=== PATIENT | female | born 1980 | race Two or more races ===

== ENCOUNTER 2024-11-14 23:31 | Inpatient (IN) | payer MEDICAID, OTHER ==
[~2024-11-14] VITALS: Ht 165.1 cm; Wt 79.4 kg
--- NOTE | 2024-11-14 23:47 | ECG ---
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
--- NOTE | 2024-11-15 00:02 | ED.PDOC ---
HPI Comments MORGAN CHEST PAIN HPI: Poor Historian. 44-year-old female presents to emergency department for evaluation of three day have chest pressure with associated radiation to the left upper extremity left lower extremity of numbness and tingling. Symptoms are worse at nighttime. Denies any history of tobacco or alcohol or drugs. No other alleviating or precipitating factors. Past Medical History: Hypertension, diabetes, dyslipidemia Past Surgical History: Tummy tuck, breast implants, BTL REVIEW OF SYSTEMS: CONSTITUTIONAL: Denies acute: fever, diaphoresis, chills, generalized weakness. HEAD: Denies acute: headache, photophobia Eyes: Denies acute: Double vision, vision loss, eye pain, eye discharge. EARS: Denies acute: tinnitus, hearing loss, ear discharge, ear pain, THROAT: Denies acute: sore throat, swelling, difficulty swallowing , pain with swallowing, change in voice. NECK: Denies acute: neck pain, neck swelling, stiff neck. HEART: Denies acute : palpitations, LUNGS: Denies acute: SOB, wheezing, cough, hemoptysis ABDOMEN: Denies acute: abdominal pain, Nausea, Vomiting, diarrhea, melena , hematemesis, hematochezia SKIN: Denies acute: rash, redness, lesions, itchiness. EXTREMITIES: Denies acute: calf pain, , , weakness, denies pain in extremity. Denies acute: Low back pain. Neuro: Denies acute: focal neurological deficit, motor or sensory focal neurological deficit, tremors, seizure like activity, confusion, dizziness, change in mental status, loss of bowel or bladder function, cauda equina like symptoms. : Denies acute: dysuria, hematuria, flank pain, increase in urinary frequency. PSYCH: Denies acute: hallucination, suicidal ideation, homicidal ideation. FEMALE: Denies acute: abnormal vaginal bleeding, foul odor, unusual discharge. PHYSICAL EXAM: General: ---mild-----acute distress, awake and alert. Appears anxious Head: normocephalic, atraumatic. Neck: supple, trachea is midline, no swelling. Throat: Normal phonation. Eyes:, no erythema, no purulent discharge, no proptosis, no icterus. Heart: regular rate, regular rhythm, no significant murmur appreciated. Lungs: no apparent respiratory distress, Able to speak in full sentences. No wheezing, no rhonchi, no crackles. No stridors Clear to auscultation bilaterally. Abdomen: non tender to palpation, non distended, soft, no guarding, no rebound, + bowel sounds. Neuro: Awake, Alert, oriented to name, self, situation, follows commands GCS=15. Speech is normal. Skin: no petechia, no purpura, no cyanosis, non-pale, not jaundice. Lower extremities: --no - Pitting edema no deformity, no focal swelling, no calf TTP. Makes eye contact. moves all four extremities. Face: no apparent facial droop. Ambulating in the ED independently. ED COURSE: DISCLAIMER: This medical document was created using an electronic medical record system with voice recognition software and computerized dictation system. Although this document has been carefully reviewed, there might still be some phonetic and typographical errors. Occasional wrong-word or "sound-alike" substitutions may have occurred due to the inherent limitations of voice recognition software. These areas are purely typographical due to imperfections of the software programs and do not reflect any compromise in the patient's medical care. Please read the chart carefully and recognize, using context, where these substitutions have occurred. Chief Complaint: Chest Pain Time Seen by MD: 23:38 Reviewed Notes: Nurses Notes Allergies: Coded Allergies: NO KNOWN ALLERGIES (Unverified , 11/15/24) Information Source: Patient Mode of Arrival: Ambulatory EKG EKG : Pulse Rate (adult): 71 Cardiac Rhythm: NSR Was a procedure done? Was a procedure done?: No CP Differential Dx Differential Diagnosis: Angina, Anxiety / Panic Attack Differential Diagnosis: Angina, Chest Wall Pain, Costochondritis, Esophageal reflux/spasm, Gastritis, Myocardial Infarction, Other (Ddx include but not limitied to gastritis, musculoskeletal pain, radiculopathy, atypical chest pain, dissection, aneurysm, ACS, unstable angina, hiatal hernia, GERD, anxiety, costochondritis, PE, pneumothroax, neoplasm, cardiac ischemia, drug abuse, anemia.) X-Ray, Labs, Meds, VS Vital Signs Date Time Temp Pulse Resp B/P (MAP) Pulse Ox O2 Delivery O2 Flow Rate FiO2 11/15/24 02:26 147/85 11/15/24 02:23 98.9 75 18 147/85 (105) 99 98.9 11/15/24 01:30 79 19 98 Room Air* 0 21 11/15/24 00:30 71 11/15/24 00:11 71 11/14/24 23:41 71 11/14/24 23:37 97.9 85 16 146/93 98 97.9 Lab Test 11/15/24 02:43 11/15/24 00:30 11/14/24 23:48 Range/Units White Blood Count 10.0 10.8 4.4-10.8 10^3/uL Red Blood Count 4.51 4.66 4.0-5.20 10^6/uL Hemoglobin 14.3 14.5 12.2-16.2 g/dL Hematocrit 42.1 41.7 36.0-46.0 % Mean Corpuscular Volume 93.4 # 89.5 80.0-100.0 fL Mean Corpuscular Hemoglobin 31.7 31.1 28.0-32.0 pg Mean Corpuscular Hemoglobin Concent 33.9 34.8 32.0-36.0 g/dL Red Cell Distribution Width 13.1 13.2 11.8-14.3 % Platelet Count 265 227 140-450 10^3/uL Mean Platelet Volume 9.0 7.9 6.9-10.8 fL Neutrophils (%) (Auto) 60.3 57.7 37.0-80.0 % Lymphocytes (%) (Auto) 29.9 32.6 10.0-50.0 % Monocytes (%) (Auto) 6.5 6.2 0.0-12.0 % Eosinophils (%) (Auto) 2.8 2.8 0.0-7.0 % Basophils (%) (Auto) 0.5 0.7 0.0-2.0 % Neutrophils # (Auto) 6.0 6.2 1.6-8.6 10 ^3/uL Lymphocytes # (Auto) 3.0 3.5 0.4-5.4 10 ^3/uL Monocytes # (Auto) 0.6 0.7 0-1.3 10 ^3/uL Eosinophils # (Auto) 0.3 0.3 0-0.8 10 ^3/uL Basophils # (Auto) 0 0.1 0-0.2 10 ^3/uL Nucleated Red Blood Cells 0.2 0.0 % Sodium Level 140 143 136-145 mmol/L Potassium Level 3.9 3.6 3.5-5.1 mmol/L Chloride Level 107 106 98-107 mmol/L Carbon Dioxide Level 21 27 20-31 mmol/L Anion Gap 12 10 5-15 Blood Urea Nitrogen 10 12 9-23 mg/dL Creatinine 0.73 0.77 0.550-1.02 mg/dL Glomerular Filtration Rate Calc 103 97 >90 mL/min BUN/Creatinine Ratio 13.7 15.6 10.0-20.0 Serum Glucose 100 111 H 74-106 mg/dL Calcium Level 9.2 9.7 8.7-10.4 mg/dL Total Bilirubin 0.4 0.4 0.2-1.0 mg/dL Aspartate Amino Transferase (AST) 25 26 13-40 U/L Alanine Aminotransferase (ALT) 30 33 7-40 U/L Alkaline Phosphatase 78 90 46-116 U/L Troponin I High Sensitivity < 3 L < 3 L < 3 L </=34 ng/L C-Reactive Protein High Sensitivity 0.27 <1.0 mg/dL B-Type Natriuretic Peptide 3.83 0-100 pg/mL Total Protein 7.2 7.6 5.7-8.2 g/dL Albumin 4.5 4.7 3.2-4.8 g/dL Current Medications Medications (Trade) Dose Ordered Sig/Mark Route Start Time Stop Time Status Last Admin Aspirin (Ecotrin Enteric Coated Tablet) 325 mg ONCE ONCE PO 11/15/24 01:00 11/15/24 02:01 DC 11/15/24 02:29 Nitroglycerin (Ntrostat Sublingual) 0.4 mg ONCE ONCE SL 11/15/24 01:00 11/15/24 02:01 DC 11/15/24 02:[address] [address] Ph: [phone] DIAGNOSTIC IMAGING Diagnostic Imaging Report : [id number] Signed PATIENT: MALLORY MORGAN ACCT: [id number] UNIT: [id number] : 1980 LOC: ER ROOM / BED: / AGE / SEX: 44 / F ADM STATUS: REG ER SERVICE [id number] ORDERING PHYSICIAN: RON BARRERA DO PROCEDURE(s): CXRP - CHEST PORTABLE REASON: cp ORDER NUMBER(s): [id number], ACCESSION NUMBER(s): [id number] CHEST RADIOGRAPH Indication: cp Technique: Single frontal view of the chest was obtained COMPARISON: None FINDINGS: Lines and Tubes: None Lungs: Clear Pleura: No effusion. No pneumothorax. Cardiomediastinal contours: Unremarkable Bones: Unremarkable IMPRESSION: 1. No acute disease. ATED BY: ROGE JAIMES MD DICTATED DATE/TIME: 11/15/2426 SIGNED BY: ROGE JAIMES MD SIGNED DATE/TIME: 11/15/2426 CC: Time of 1ST Reevaluation: 00:10 Reevaluation 1ST: Unchanged Patient Education/Counseling: Diagnosis, Treatment Family Education/Counseling: Diagnosis, Treatment Comments MDM: patient presented with the above HPI.---cardiac---workup was initiated. patient was found with the above mentioned diagnosis. the following medications were ordered: please refer to order lists of meds and tests obtained by myself Dr. Barrera. Patient ED course and VS have been stabilized. Patient has been reassessed in the ED and remained in a stable condition. Pertinent incidental findings were discussed with the patient and/or family. Patient/family voices understanding and is agreeable with plan. Patient has been observed in the ED adequate length of time to insure improvement/stability. Escalation of care considered: Consideration of escalation to observation or admission Patient was ADMITTED to the medicine team for further evaluation and treatment of their presentation. All the reports of any imaging studies that were ordered by myself were reviewed by myself. Departure 1 Departure Time of Disposition: 00:48 Impression: Primary Impression: Chest pain Disposition: ADMITTED INPATIENT Admit to: [facility] Condition: Guarded Discharged With: Self Critical Care Note Critical Care Time?: No Heart Score Heart Score: Heart Score Response (Comments) Value History Moderate Suspicious 1 EKG Normal 0 Age <45 0 Risk Factors >3 or Hx ASHD 2 Troponin Normal limit 0 Total 3 I personally scribed for RON BARRERA DO ([email or web address]) on 11/15/24 at 00:11. Electronically submitted by Yovanny Allen ([facility]). I personally scribed for RON BARRERA DO ([facility]) on 11/15/24 at 00:47. Electronically submitted by Yovanny Allen ([facility]). I personally scribed for RON BARRERA DO ([facility]) on 11/15/24 at 01:50. Electronically submitted by Yovanny Allen ([facility]). RON BARRERA DO Nov 15, 2024 00:02
[2024-11-15 00:19] LABS: Alanine Aminotransferase 33 U/L (7-40); Albumin 4.7 g/dL (3.2-4.8); Alkaline Phosphatase 90 U/L (46-116); Anion Gap 10 (5-15); BUN/Creatinine Ratio 15.6 (10.0-20.0); Blood Urea Nitrogen 12 mg/dL (9-23); Calcium 9.7 mg/dL (8.7-10.4); Carbon Dioxide 27 mmol/L (20-31); Chloride 106 mmol/L (98-107); Potassium 3.6 mmol/L (3.5-5.1); Sodium 143 mmol/L (136-145); Total Protein 7.6 g/dL (5.7-8.2)
[2024-11-15 00:20] LABS: Bilirubin, Total 0.4 mg/dL (0.2-1.0)
--- NOTE | 2024-11-15 00:29 | DVH ---
CHEST RADIOGRAPH Indication: cp Technique: Single frontal view of the chest was obtained COMPARISON: None FINDINGS: Lines and Tubes: None Lungs: Clear Pleura: No effusion. No pneumothorax. Cardiomediastinal contours: Unremarkable Bones: Unremarkable IMPRESSION: 1. No acute disease.
[2024-11-15 00:33] LABS: Glucose 111 mg/dL (74-106)
[2024-11-15 01:03] LABS: Hematocrit 41.7 % (36.0-46.0); Hemoglobin 14.5 g/dL (12.2-16.2); Mean Corpuscular Hemoglobin 31.1 pg (28.0-32.0); Mean Corpuscular Volume 89.5 fL (80.0-100.0); Nucleated Red Blood Cells % 0.0 %
[2024-11-15 01:30] VITALS: PULSE 79; RESP 19; O2SAT 98
--- NOTE | 2024-11-15 01:44 | ECG ---
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
[2024-11-15] MEDS: NITROGLYCERIN 0.4 MG SL TAB SL ONE (02:26)
[2024-11-15] MEDS: ASPirin-EC 325mg tab PO ONE (02:29)
[2024-11-15] MEDS ORDERED: NITROGLYCERIN 0.4 MG SL TAB SL PRN (04:15)
[2024-11-15] MEDS ORDERED: MORPHINE SULFATE INJ 2 MG/ml SYRG IV PRN (04:15)
[2024-11-15] MEDS ORDERED: DOCUSATE SOD 100 MG CAP PO PRN (04:15)
[2024-11-15] MEDS ORDERED: HYDROcodone-ACET 5/325MG TAB PO PRN (04:15)
[2024-11-15] MEDS ORDERED: ONDANSETRON HCL 4 MG/2 ML VIAL IV PRN (04:15)
[2024-11-15] MEDS ORDERED: PANTOPRAZOLE 40 MG/10 ML VIAL INJ IV ONE (04:15)
--- NOTE | 2024-11-15 04:31 | DVHHPRES ---
History of Present Illness Resident Creating Document: BAILEE DICKSON RESIDENT History of Present Illness Chris Slade is a 44-year-old female with past medical history of hypertension, diabetes, dyslipidemia, GERD, who presented to the ED with chief complaints of pressure-like, 8/10 chest pain which is radiating to the left arm, worse with lying down, which comes and goes Since Monday night. Patient also complains of numbness in her arm since 3 days. She is able to move her arm without any pain. Patient also had a recent UTI and finished her oral antibiotics. Patient takes Ozempic. Patient is admitted for further management. Past Medical History: Hypertension, diabetes, dyslipidemia, GERD Past Surgical History: Tummy tuck, breast implants, BTL Family history: Reviewed, noncontributory Personal history: Denies smoking, drinks occasionally, denies drug use Lives with: Family PCP:Dr. Mcdowell Review of Systems Constitutional: No: Fever, Chills, Sweats, Weakness, Malaise, Other Eyes: No: Pain, Vision change, Conjunctivae inflammation, Eyelid inflammation, Other, Redness ENT: No: Ear pain, Ear discharge, Nose pain, Nose discharge, Nose congestion, Mouth pain, Mouth swelling, Throat pain, Throat swelling, Other Respiratory: No: Cough, Dry, Shortness of breath, SOB with excertion, Wheezing, Hemoptysis, Pleuritic Pain, Sputum, Wheezing, Other Cardiovascular: Chest Pain, Palpitations; No: Orthopnea, Paroxysmal Noc. Dyspnea, Edema, Lt Headedness, Other Gastrointestinal: No: Nausea, Vomiting, Abdominal Pain, Diarrhea, Constipation, Melena, Hematochezia, Other Genitourinary: No Dysuria, No Frequency, No Incontinence, No Hematuria, No Retention, No Other Musculoskeletal: No: other, neck pain, shoulder pain, arm pain, back pain, hand pain, leg pain, foot pain Skin: No: Rash, Lesions, Jaundice, Bruising, Other Neurological: No: Weakness, Numbness, Incoordination, Change in speech, Confusion, Seizures, Other Allergies: Coded Allergies: NO KNOWN ALLERGIES (Unverified , 11/15/24) Exam Vital Signs Vital Signs Date Time Temp Pulse Resp B/P (MAP) Pulse Ox O2 Delivery O2 Flow Rate FiO2 11/15/24 02:26 147/85 11/15/24 02:23 98.9 75 18 99 98.9 11/15/24 01:30 Room Air* 0 21 Exam General: Patient alert and oriented in person, place and time. Patient following commands. In mild distress HEENT: Normocephalic, atraumatic, moist mucous membranes Respiratory/pulmonary: Clear lungs bilaterally, vesicular murmurs present in almost all lung [place], no associated crackles or wheezes. Cardiovascular: Normal heart sounds S1 and S2 with no associated murmurs Abdomen: Abdomen nondistended, there is no pain to palpation in any of the abdominal quadrants, no palpable masses. Extremities: There is no peripheral edema present at the lower extremities. Peripheral Pulses: 3+ Radial (R). 3+ Radial (L). 3+ Dorsalis pedis (R). 3+ Dorsalis pedis(L) Skin: No rashes or pruritus, there is no sacral edema present at this time. Neurological: Intact cranial nerves with no focal neurologic deficits Psych/ Mood: Normal Labs/Xrays Labs Test 11/15/24 02:43 11/14/24 23:48 Range/Units Troponin I High Sensitivity < 3 L </=34 ng/L White Blood Count 10.8 4.4-10.8 10^3/uL Red Blood Count 4.66 4.0-5.20 10^6/uL Hemoglobin 14.5 12.2-16.2 g/dL Hematocrit 41.7 36.0-46.0 % Mean Corpuscular Volume 89.5 80.0-100.0 fL Mean Corpuscular Hemoglobin 31.1 28.0-32.0 pg Mean Corpuscular Hemoglobin Concent 34.8 32.0-36.0 g/dL Red Cell Distribution Width 13.2 11.8-14.3 % Platelet Count 227 140-450 10^3/uL Mean Platelet Volume 7.9 6.9-10.8 fL Neutrophils (%) (Auto) 57.7 37.0-80.0 % Lymphocytes (%) (Auto) 32.6 10.0-50.0 % Monocytes (%) (Auto) 6.2 0.0-12.0 % Eosinophils (%) (Auto) 2.8 0.0-7.0 % Basophils (%) (Auto) 0.7 0.0-2.0 % Neutrophils # (Auto) 6.2 1.6-8.6 10 ^3/uL Lymphocytes # (Auto) 3.5 0.4-5.4 10 ^3/uL Monocytes # (Auto) 0.7 0-1.3 10 ^3/uL Eosinophils # (Auto) 0.3 0-0.8 10 ^3/uL Basophils # (Auto) 0.1 0-0.2 10 ^3/uL Nucleated Red Blood Cells 0.0 % Sodium Level 143 136-145 mmol/L Potassium Level 3.6 3.5-5.1 mmol/L Chloride Level 106 98-107 mmol/L Carbon Dioxide Level 27 20-31 mmol/L Anion Gap 10 5-15 Blood Urea Nitrogen 12 9-23 mg/dL Creatinine 0.77 0.550-1.02 mg/dL Glomerular Filtration Rate Calc 97 >90 mL/min BUN/Creatinine Ratio 15.6 10.0-20.0 Serum Glucose 111 H 74-106 mg/dL Calcium Level 9.7 8.7-10.4 mg/dL Total Bilirubin 0.4 0.2-1.0 mg/dL Aspartate Amino Transferase (AST) 26 13-40 U/L Alanine Aminotransferase (ALT) 33 7-40 U/L Alkaline Phosphatase 90 46-116 U/L Total Protein 7.6 5.7-8.2 g/dL Albumin 4.7 3.2-4.8 g/dL SEPSIS Sepsis Screen Date sepsis recognized/suspect: Nov 14, 2024 Time Sepsis recognized/suspect: 2352 Recent Procedure: No On Antibiotic Therapy: No Respiratory Rate >20: No Heart Rate >90: No Temp<36 C (96.8 F) or >38.3 C: No SBP <90 or MAP <65 mmHG: No New Acute Mental Status Change: No Is the patient on CPAP, BIPAP,: No Physician Orders Environmental Program Manager (11/14/24 ) Drug Screen (11/14/24 23:44) Chest Portable (11/14/24 23:44) Electrocardigram (11/15/24 02:44) Admit (11/15/24 04:07) Allergies (11/15/24 04:07) Code Status (11/15/24 04:07) 2 Gm Sodium Diet (11/15/24 Breakfast) Hydrocodone-Acet 5/325mg Tab ([place] 32 (11/15/24 04:15) Ondansetron Hcl (Zofran) (11/15/24 04:15) Docusate Sodium Capsule (Colace Capsule) (11/15/24 04:15) Complete Blood Count (11/15/24 04:07) Comprehensive Metabolic Panel (11/15/24 04:07) Condition: Serious (11/15/24 04:07) Bedrest With Bathroom Privileg (11/15/24 04:07) Oxygen By Nasal Cannula (11/15/24 04:07) Stat Ekg For Chest Pain (11/15/24 04:07) Notify Of Changes From Base (11/15/24 04:07) Programmer Analyst For 24 Hours (11/15/24 04:07) Emergency Dysrhythmia Protocol (11/15/24 04:07) Rhythm Strips Once Every Shift (11/15/24 04:07) Morphine Sulfate Injection (11/15/24 04:15) Nitroglycerin Sublingual (Ntrostat Subli (11/15/24 04:15) Pantoprazole (Protonix) (11/15/24 04:15) Pantoprazole (Protonix) (11/15/24 10:00) Electrocardigram (11/15/24 04:07) Troponin-I Hs (11/15/24 04:07) B-Type Natriuretic Peptide (11/15/24 04:07) Urinalysis (11/15/24 04:07) C-Reactive Protein (11/15/24 04:07) Vital Signs Date Time Temp Pulse Resp B/P (MAP) Pulse Ox O2 Delivery O2 Flow Rate FiO2 11/15/24 02:26 147/85 11/15/24 02:23 98.9 75 18 147/85 (105) 99 98.9 11/15/24 01:30 79 19 98 Room Air* 0 21 11/15/24 00:30 71 11/15/24 00:11 71 11/14/24 23:41 71 11/14/24 23:37 97.9 85 16 146/93 98 97.9 Laboratory Tests Test 11/14/24 23:48 White Blood Count 10.8 10^3/uL (4.4-10.8) Medications Medications Dose Ordered Sig/Mark Route Start Time Stop Time Status Last Admin Dose Admin Aspirin 325 mg ONCE ONCE PO 11/15/24 01:00 11/15/24 02:01 DC 11/15/24 02:29 325 MG Nitroglycerin 0.4 mg ONCE ONCE SL 11/15/24 01:00 11/15/24 02:01 DC 11/15/24 02:26 0.4 MG Assessment/Plan Assessment/Plan Assessment and plan # chest pain rule out ACS, pruritic pattern of chest pain, associated dyspepsia ? Endocarditis ? Gastritis - EKG WNL, ordered CRP, normal tropes - troponins negative - aspirin 325 mg was given in the ER - Continue Protonix # hypertension - continue home meds # diabetes mellitus -we will order insulin sliding scale # hyperlipidemia - continue home meds PPI prophylaxis: Protonix DVT prophylaxis: Not indicated Goals of care addressed with the patient for more than 27 minutes: Full code status Case discussed with Dr. Roche, patient and nurse Plan discussed with: Patient My Orders Orders - BAILEE DICKSON RESIDENT Procedure Category Date Status Time Admit ADMIT 11/15/24 Transmitted 04:07 Allergies [facility] 11/15/24 In Process 04:07 Code Status CODE 11/15/24 Transmitted 04:07 2 Gm Sodium Diet DIET 11/15/24 Transmitted Breakfast Hydrocodone-Acet [facility] 11/15/24 Transmitted 5/325mg Tab ([place] 04:15 Ondansetron Hcl [facility] 11/15/24 Transmitted (Zofran) 04:15 Docusate Sodium [facility] 11/15/24 Transmitted Capsule (Colace 04:15 Complete Blood Count LAB 11/15/24 Transmitted 04:07 Comprehensive LAB 11/15/24 Transmitted Metabolic Panel 04:07 Condition: Serious [facility] 11/15/24 In Process 04:07 Bedrest With Bathroom [facility] 11/15/24 In Process Privileg 04:07 Oxygen By Nasal RT 11/15/24 Transmitted Cannula 04:07 Stat Ekg For Chest [facility] 11/15/24 Transmitted Pain 04:07 Notify Of Changes [facility] 11/15/24 Transmitted From Base 04:07 Programmer Analyst For [facility] 11/15/24 Transmitted 24 Hours 04:07 Emergency Dysrhythmia [facility] 11/15/24 Transmitted Protocol 04:07 Rhythm Strips Once [facility] 11/15/24 Transmitted Every Shift 04:07 Morphine Sulfate [facility] 11/15/24 Transmitted Injection 04:15 Nitroglycerin [facility] 9/12/25 Transmitted Sublingual (Ntrostat 04:15 Pantoprazole [facility] 11/15/24 Transmitted (Protonix) 04:15 Pantoprazole [facility] 11/15/24 Transmitted (Protonix) 10:00 Electrocardigram EKG 11/15/24 Transmitted 04:07 Troponin-I Hs LAB 11/15/24 Logged 04:07 B-Type Natriuretic LAB 11/15/24 Logged Peptide 04:07 Urinalysis LAB 11/15/24 Transmitted 04:07 C-Reactive Protein LAB 11/15/24 Logged 04:07 Date of Service: Nov 15, 2024 Billing Provider: KIP ROCHE MD Common Visit Codes: [id number] INP/OBS CARE (HIGH) Secondary Visit Codes: [id number] CARE PLAN 30 MINUTES BAILEE DICKSON RESIDENT Nov 15, 2024 04:31 JUDE DEXTER RESIDENT Nov 15, 2024 09:21
[2024-11-15 04:59] LABS: Hematocrit 42.1 % (36.0-46.0); Hemoglobin 14.3 g/dL (12.2-16.2); Mean Corpuscular Hemoglobin 31.7 pg (28.0-32.0); Mean Corpuscular Volume 93.4 fL (80.0-100.0); Nucleated Red Blood Cells % 0.2 %
[2024-11-15 05:04] LABS: Alanine Aminotransferase 30 U/L (7-40); Albumin 4.5 g/dL (3.2-4.8); Alkaline Phosphatase 78 U/L (46-116); Anion Gap 12 (5-15); BUN/Creatinine Ratio 13.7 (10.0-20.0); Bilirubin, Total 0.4 mg/dL (0.2-1.0); Blood Urea Nitrogen 10 mg/dL (9-23); Calcium 9.2 mg/dL (8.7-10.4); Carbon Dioxide 21 mmol/L (20-31); Chloride 107 mmol/L (98-107); Glucose 100 mg/dL (74-106); Potassium 3.9 mmol/L (3.5-5.1); Sodium 140 mmol/L (136-145); Total Protein 7.2 g/dL (5.7-8.2)
[2024-11-15 05:22] VITALS: BP 145/81; PULSE 68; RESP 18; TEMP 98.7; O2SAT 97
--- NOTE | 2024-11-15 09:38 | DVHDSRES ---
Discharge Summary Date of Admission Resident Creating Document: BAILEE DICKSON Nov 15, 2024 at 04:07 Date of Discharge: Nov 15, 2024 Admitting Diagnosis pericarditis Labs/Diagnostic Data: Laboratory Results Test 11/15/24 02:43 White Blood Count 10.0 10^3/uL (4.4-10.8) Red Blood Count 4.51 10^6/uL (4.0-5.20) Hemoglobin 14.3 g/dL (12.2-16.2) Hematocrit 42.1 % (36.0-46.0) Mean Corpuscular Volume 93.4 fL (80.0-100.0) Mean Corpuscular Hemoglobin 31.7 pg (28.0-32.0) Mean Corpuscular Hemoglobin Concent 33.9 g/dL (32.0-36.0) Red Cell Distribution Width 13.1 % (11.8-14.3) Platelet Count 265 10^3/uL (140-450) Mean Platelet Volume 9.0 fL (6.9-10.8) Neutrophils (%) (Auto) 60.3 % (37.0-80.0) Lymphocytes (%) (Auto) 29.9 % (10.0-50.0) Monocytes (%) (Auto) 6.5 % (0.0-12.0) Eosinophils (%) (Auto) 2.8 % (0.0-7.0) Basophils (%) (Auto) 0.5 % (0.0-2.0) Neutrophils # (Auto) 6.0 10 ^3/uL (1.6-8.6) Lymphocytes # (Auto) 3.0 10 ^3/uL (0.4-5.4) Monocytes # (Auto) 0.6 10 ^3/uL (0-1.3) Eosinophils # (Auto) 0.3 10 ^3/uL (0-0.8) Basophils # (Auto) 0 10 ^3/uL (0-0.2) Nucleated Red Blood Cells 0.2 % Sodium Level 140 mmol/L (136-145) Potassium Level 3.9 mmol/L (3.5-5.1) Chloride Level 107 mmol/L (98-107) Carbon Dioxide Level 21 mmol/L (20-31) Anion Gap 12 (5-15) Blood Urea Nitrogen 10 mg/dL (9-23) Creatinine 0.73 mg/dL (0.550-1.02) Glomerular Filtration Rate Calc 103 mL/min (>90) BUN/Creatinine Ratio 13.7 (10.0-20.0) Serum Glucose 100 mg/dL (74-106) Calcium Level 9.2 mg/dL (8.7-10.4) Total Bilirubin 0.4 mg/dL (0.2-1.0) Aspartate Amino Transferase (AST) 25 U/L (13-40) Alanine Aminotransferase (ALT) 30 U/L (7-40) Alkaline Phosphatase 78 U/L (46-116) Troponin I High Sensitivity < 3 ng/L (</=34) C-Reactive Protein High Sensitivity 0.27 mg/dL (<1.0) B-Type Natriuretic Peptide 3.83 pg/mL (0-100) Total Protein 7.2 g/dL (5.7-8.2) Albumin 4.5 g/dL (3.2-4.8) Other Laboratory Tests 11/15/24 02:43 Brief Hx & Hospital Course: Chris Slade is a 44-year-old female with past medical history of hypertension, diabetes, dyslipidemia, GERD, who presented to the ED with chief complaints of pressure-like, 8/10 chest pain which is radiating to the left arm, worse with lying down, which comes and goes Since Monday night. Patient also complains of numbness in her arm since 3 days. She is able to move her arm without any pain. Patient also had a recent UTI and finished her oral antibiotics. Patient takes Ozempic. Patient is admitted for further management. Brief hospital course: Patient came to the ED with chief complaints of chest pain for which EKG was done, CBC, CMP was done, troponins were negative. In the ED aspirin 325 mg was given, Protonix was given. For her hypertension her home meds were continued. Patient's chest pain was likely due to pleuritic chest pain, could not rule out diagnosis as the patient has left AMA. Patient was told the risks of leaving AMA, she communicated understanding the risks and benefits of leaving AMA and has signed the AMA form. Patient was advised to return to the ED for any worsening of symptoms. Condition at Discharge: Undetermined Final Diagnosis/Problems List Likely Pleuritic chest pain Unable to rule out gastritis Unable to rule out dyspepsia Hypertension Diabetes mellitus Hyperlipidemia Discharge Disposition: AMA Discharge Statement: "Patient was advised to return to the ER or call 911 if any headaches, dizziness, shortness of breath, chest pain, abdominal pain, bleeding, fevers, or worsening of medical condition. Patient was counseled about treatment plan, medications, possible side effects, patientverbalized understanding. All questions were answered to the best of my ability. This discharge took greater then 30 minutes in planning, reviewing documentation, counseling the patient, and discussing with other team members." ASSESSMENT ASSESSMENT Assessment BAILEE DICKSON RESIDENT Nov 15, 2024 09:38
[2024-11-16] MEDS ORDERED: PANTOPRAZOLE 40 MG/10 ML VIAL INJ IV SCH (10:00)
== END 2024-11-15 06:43 | disposition left against medical advice (07) | DRG 241 ==
LOC: EDBD → ER 23:31 → OVERFLOW 11-15 04:07
PROVIDERS: ADMIT Family Medicine; ATTEND Family Medicine
DX: K29.70 Gastritis, unspecified, without bleeding (principal); E11.9 Type 2 diabetes mellitus without complications; R07.81 Pleurodynia; I10 Essential (primary) hypertension; E78.5 Hyperlipidemia, unspecified; K21.9 Gastro-esophageal reflux disease without esophagitis; Z53.29 Procedure and treatment not carried out because of patient's decision for other reasons; Z98.82 Breast implant status
CPT/HCPCS: 36415; 71045; 80053; 83880; 84484; 85025; 86141; 93005; G0378

== ENCOUNTER 2024-11-17 15:30 | Inpatient (IN) | payer MEDICAID ==
[~2024-11-17] VITALS: Ht 152.4 cm; Wt 78.2 kg
--- NOTE | 2024-11-17 15:37 | ECG ---
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
[2024-11-17 16:23] LABS: Chloride 106 mmol/L (98-107); Potassium 3.8 mmol/L (3.5-5.1); Sodium 141 mmol/L (136-145)
[2024-11-17 16:24] LABS: Anion Gap 11 (5-15); Calcium 9.9 mg/dL (8.7-10.4); Carbon Dioxide 24 mmol/L (20-31)
--- NOTE | 2024-11-17 16:26 | ECG ---
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
[2024-11-17 16:29] LABS: BUN/Creatinine Ratio 19.8 (10.0-20.0); Blood Urea Nitrogen 17 mg/dL (9-23)
[2024-11-17 16:30] LABS: Glucose 110 mg/dL (74-106)
--- NOTE | 2024-11-17 16:42 | DVH ---
EXAM: XY CHEST PORTABLE HISTORY: cp TECHNIQUE: 1 view of the chest COMPARISON: XY CHEST PORTABLE on DOS: 11/15/24 FINDINGS/IMPRESSION: LUNGS: No pleural effusion, consolidation, or pneumothorax MEDIASTINUM: Unremarkable BONES: No acute osseous abnormality OTHER: None
--- NOTE | 2024-11-17 18:18 | ECG ---
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
--- NOTE | 2024-11-17 18:40 | ED.PDOC ---
HPI Comments 44 y.o female with PMHx of DM, HTN, and HLD, presents to the ED for a chief complaint of substernal chest pain associated with left arm numbness and a tingling sensation to her left leg that started 6 days ago. Patient describes chest pain as a burning and pressure sensation that is non radiating, constant, worsens when laying flat and has no alleviating factors. Patient was seen at the ED 3 days ago, had a cardiac work up done and admitted to see can piler, however AMA given wait time and increased malaise while awaiting in the lobby. Patient went home assuming her symptoms would subside but only worsened over the past 2 nights and has dizziness with right sided neck discomfort x 1 day. She denies any nausea, vomiting, abdominal pain, SOB, fever, chills, or leg swelling. She is agreeable to stay this time if admitted as she wants to be seen by a can piler. Chief Complaint: Chest Pain Time Seen by MD: 18:30 Reviewed Notes: Nurses Notes, Medications, Allergies Allergies: Coded Allergies: NO KNOWN ALLERGIES (Unverified , 11/15/24) Information Source: Patient Mode of Arrival: Ambulatory Severity: Moderate Timing: Days (6) Duration: Since onset Location: Substernal Radiation: No Radiation Quality: Pressure, Burning Onset: At Rest Cardiac Risk Factors: Hyperlipidemia, HTN, Diabetes PE Risk Factors: None History of: None Modifying Factors: Nothing Associated Signs and Symptoms: Other Past Medical History PAST MEDICAL HISTORY: DM, High Lipids, HTN Surgical History: Denies all surgeries PROCUREMENT REPRESENTATIVE History: No Pertinent PROCUREMENT REPRESENTATIVE History Family History Family History: Reviewed,noncontributory to illness Social History Smoker: Non-Smoker Alcohol: Denies ETOH Use Drugs: Denies Drug Use Lives In: Home Constitutional: denies: chills, diaphoresis, fatigue, fever, malaise, sweats, weakness, others EENTM: denies: blurred vision, double vision, ear bleeding, ear discharge, ear drainage, ear pain, ear ringing, eye pain, eye redness, hearing loss, mouth pain, mouth swelling, nasal discharge, nose bleeding, nose congestion, nose pain, photophobia, tearing, throat pain, throat swelling, voice changes, others Respiratory: denies: cough, hemoptysis, orthopnea, SOB at rest, shortness of breath, SOB with excertion, stridor, wheezing, others Cardiovascular: reports: chest pain; denies: dizzy spells, diaphoresis, Dyspnea on exertion, edema, irregular heart beat, left arm pain, lightheadedness, palpitations, PND, syncope, others Gastrointestinal: denies: abdomen distended, abdominal pain, blood streaked bowels, constipated, diarrhea, dysphagia, difficulty swallowing, hematemesis, melena, nausea, poor appetite, poor fluid intake, rectal bleeding, rectal pain, vomiting, others Genitourinary: denies: abnormal vagina bleeding, burning, dyspareunia, dysuria, flank pain, frequency, hematuria, incontinence, pain, , vagina discharge, urgency, others Neurological: reports: numbness (left arm ), tingling (left leg ); denies: dizziness, fainting, headache, left sided numbness, left sided weakness, paresthesia, pre-existing deficit, right sided numbness, right sided weakness, seizure, speech problems, tremors, weakness, others Musculoskeletal: denies: back pain, gout, joint pain, joint swelling, muscle pain, muscle stiffness, neck pain, others Integumetry: denies: bruises, change in color, change in hair/nails, dryness, laceration, lesions, lumps, rash, wounds, others Allergic/Immunocompromised: denies: Difficulty Healing, Frequent Infections, Hives, Itching, others Hematologic/Lymphatic: denies: anemia, blood clots, easy bleeding, easy bruising, swollen glands, others Endocrine: denies: excessive hunger, excessive sweating, excessive thirst, excessive urination, flushing, intolerance to cold, intolerance to heat, unexplained weight gain, unexplained weight loss, others Psychiatric: denies: anxiety, bipolar disorder, depression, hopeless, panic disorder, schizophrenia, sleepless, suicidal, others All Other Systems: Reviewed and Negative Physical Exam General Appearance: No Apparent Distress, Obese HEENT: Other (Pupils and face symmetric. Moist mucous membranes.) Neck: Full Range of Motion, Normal Inspection Respiratory: Lungs Clear, No Accessory Muscle Use, No Respiratory Distress, Normal Breath Sounds Cardiovascular: No Edema, No JVD, Regular Rate/Rhythm Breast Exam: Deferred Gastrointestinal: Non Tender, Soft Genitalia: Deferred Pelvic: Deferred Rectal: Deferred Extremities: Normal inspection, Normal range of motion, Non-tender, No pedal edema Neurologic: Alert (Oriented x4), Normal Affect, Normal Mood, Other (Ambulatory) Cerebellar Function: NOT DONE Reflexes: NOT DONE Skin: Dry, Normal Color, Warm Lymphatic: NOT DONE EKG EKG : Comments Sinus rhythm, rate 65, normal intervals, borderline left axis, normal QRS, nonspecific T change. Was a procedure done? Was a procedure done?: No CP Differential Dx Differential Diagnosis: N/A Differential Diagnosis: Angina, Chest Wall Pain, Costochondritis, Esophageal reflux/spasm, Gastritis, Myocardial Infarction, Pericarditis, Pneumonia, Pulmonary Embolus X-Ray, Labs, Meds, VS Vital Signs Date Time Temp Pulse Resp B/P (MAP) Pulse Ox O2 Delivery O2 Flow Rate FiO2 11/17/24 18:57 98.7 77 16 140/86 (104) 99 98.7 11/17/24 18:57 77 11/17/24 18:56 140/86 11/17/24 18:18 65 11/17/24 16:25 72 11/17/24 15:36 96 11/17/24 15:33 98.7 109 16 168/98 98 98.7 Lab Test 11/17/24 19:08 11/17/24 16:55 11/17/24 15:57 Range/Units White Blood Count 9.0 4.4-10.8 10^3/uL Red Blood Count 5.01 4.0-5.20 10^6/uL Hemoglobin 15.6 12.2-16.2 g/dL Hematocrit 45.1 36.0-46.0 % Mean Corpuscular Volume 90.1 80.0-100.0 fL Mean Corpuscular Hemoglobin 31.1 28.0-32.0 pg Mean Corpuscular Hemoglobin Concent 34.5 32.0-36.0 g/dL Red Cell Distribution Width 13.2 11.8-14.3 % Platelet Count 269 140-450 10^3/uL Mean Platelet Volume 9.3 6.9-10.8 fL Neutrophils (%) (Auto) 63.4 37.0-80.0 % Lymphocytes (%) (Auto) 28.5 10.0-50.0 % Monocytes (%) (Auto) 5.6 0.0-12.0 % Eosinophils (%) (Auto) 1.9 0.0-7.0 % Basophils (%) (Auto) 0.6 0.0-2.0 % Neutrophils # (Auto) 5.7 1.6-8.6 10 ^3/uL Lymphocytes # (Auto) 2.6 0.4-5.4 10 ^3/uL Monocytes # (Auto) 0.5 0-1.3 10 ^3/uL Eosinophils # (Auto) 0.2 0-0.8 10 ^3/uL Basophils # (Auto) 0.1 0-0.2 10 ^3/uL Nucleated Red Blood Cells 0.1 % Total Bilirubin Pending Direct Bilirubin Pending Aspartate Amino Transferase (AST) Pending Alanine Aminotransferase (ALT) Pending Alkaline Phosphatase Pending Troponin I High Sensitivity < 3 L < 3 L </=34 ng/L Total Protein Pending Albumin Pending Triglycerides Level Pending Cholesterol Level Pending LDL Cholesterol Pending HDL Cholesterol Pending Anti-Nuclear Antibody Screen Pending D-Dimer, Quantitative 0.43 0.0-0.49 mg/L FEU Sodium Level 141 136-145 mmol/L Potassium Level 3.8 3.5-5.1 mmol/L Chloride Level 106 98-107 mmol/L Carbon Dioxide Level 24 20-31 mmol/L Anion Gap 11 5-15 Blood Urea Nitrogen 17 9-23 mg/dL Creatinine 0.86 0.550-1.02 mg/dL Glomerular Filtration Rate Calc 85 >90 mL/min BUN/Creatinine Ratio 19.8 10.0-20.0 Serum Glucose 110 H 74-106 mg/dL Hemoglobin A1c Pending Calcium Level 9.9 8.7-10.4 mg/dL B-Type Natriuretic Peptide 2.05 0-100 pg/mL Thyroid Stimulating Hormone (TSH) Pending Current Medications Medications (Trade) Dose Ordered Sig/Mark Route Start Time Stop Time Status Last Admin Aspirin 325 mg ONCE ONCE PO 11/17/24 18:45 11/17/24 18:46 DC 11/17/24 18:55 Nitroglycerin (Nitro-Bid) 1 pkg ONCE ONCE TD 11/17/24 18:45 11/17/24 18:46 DC 11/17/24 18:56 X-Ray, Labs, Meds, VS Comment 44-year-old female with a history of hypertension, diabetes and dyslipidemia complaining of chest pain Vitals remarkable for heart rate 109, BP 168/98 Exam remarkable for initial tachycardia Rhythm strip independently interpreted by me: Sinus tach, rate 109, no ectopy. Chest x-ray unremarkable CBC, basic metabolic panel, BNP, D-dimer and troponin unremarkable Patient treated with the following in the ED: Aspirin 325 mg p.o., nitro bid 1/2 inch to chest wall Patient was here 3 days ago for the same complaint, plan was for admission but patient left AMA. Patient now states she has not had improvement of her symptoms. Plan is to admit the patient for Cardiology evaluation. Time of 1ST Reevaluation: 18:36 Reevaluation 1ST: Unchanged Patient Education/Counseling: Diagnosis, Treatment, Prognosis Family Education/Counseling: No Family Present SEPSIS Sepsis Screen Date sepsis recognized/suspect: Nov 17, 2024 Time Sepsis recognized/suspect: 1532 Recent Procedure: No On Antibiotic Therapy: No Respiratory Rate >20: No Heart Rate >90: No Temp<36 C (96.8 F) or >38.3 C: No SBP <90 or MAP <65 mmHG: No New Acute Mental Status Change: No Is the patient on CPAP, BIPAP,: No Physician Orders Chest Portable (11/17/24 15:41) Urinalysis (11/17/24 15:41) Vital Signs Date Time Temp Pulse Resp B/P (MAP) Pulse Ox O2 Delivery O2 Flow Rate FiO2 11/17/24 18:57 98.7 77 16 140/86 (104) 99 98.7 11/17/24 18:57 77 11/17/24 18:56 140/86 11/17/24 18:18 65 11/17/24 16:25 72 11/17/24 15:36 96 11/17/24 15:33 98.7 109 16 168/98 98 98.7 Laboratory Tests Test 11/17/24 19:08 White Blood Count 9.0 10^3/uL (4.4-10.8) Medications Medications Dose Ordered Sig/Mark Route Start Time Stop Time Status Last Admin Dose Admin Aspirin 325 mg ONCE ONCE PO 11/17/24 18:45 11/17/24 18:46 DC 11/17/24 18:55 Nitroglycerin 1 pkg ONCE ONCE TD 11/17/24 18:45 11/17/24 18:46 DC 11/17/24 18:56 Departure 1 Departure Time of Disposition: 18:42 Impression: Primary Impression: Chest pain with high risk for cardiac etiology Disposition: 09 ADMITTED INPATIENT Admit to: Tele Condition: Guarded Critical Care Note Critical Care Time?: No Stability Stability form required: No Heart Score Heart Score: Heart Score Response (Comments) Value History Moderate Suspicious 1 EKG Repolarization Disturb 1 Age 45-64 1 Risk Factors >3 or Hx ASHD 2 Troponin Normal limit 0 Total 5 I personally scribed for JESUS CUEVA MD ([email or web address]) on 11/17/24 at 18:40. Electronically submitted by Ana Yan ([facility]). JESUS CUEVA MD Nov 17, 2024 18:40
[2024-11-17] MEDS ORDERED: NITROGLYCERIN 2% OINT 1GM PKG TD ONE (18:56)
[2024-11-17] MEDS: NITROGLYCERIN 2% OINT 1GM PKG TD ONE (18:56)
[2024-11-17 19:22] LABS: Hematocrit 45.1 % (36.0-46.0); Hemoglobin 15.6 g/dL (12.2-16.2); Mean Corpuscular Hemoglobin 31.1 pg (28.0-32.0); Mean Corpuscular Volume 90.1 fL (80.0-100.0); Nucleated Red Blood Cells % 0.1 %
[2024-11-17] MEDS ORDERED: ONDANSETRON HCL 4 MG/2 ML VIAL IV PRN (20:45)
[2024-11-17] MEDS ORDERED: NITROGLYCERIN 0.4 MG SL TAB SL PRN (20:45)
[2024-11-17] MEDS ORDERED: MORPHINE SULFATE INJ 2 MG/ml SYRG IV PRN ×2 (20:45)
[2024-11-17 22:22] LABS: Alanine Aminotransferase 37.0 U/L (7-40); Alkaline Phosphatase 82.0 U/L (46-116); Bilirubin, Direct 0.1 mg/dL (<0.3); Bilirubin, Total 0.6 mg/dL (0.2-1.0); Cholesterol 175.0 mg/dL (< 200); HDL Cholesterol 45.0 mg/dL (40-59); Total Protein 7.9 g/dL (5.7-8.2)
[2024-11-17 22:31] LABS: Albumin 4.8 g/dL (3.2-4.8); Triglycerides 191.0 mg/dL (< 150)
--- NOTE | 2024-11-17 23:56 | DVHHPRES ---
History of Present Illness Resident Creating Document: BAILEE DICKSON RESIDENT History of Present Illness Chris Slade 44-year-old female with past medical history of hypertension, diabetes, dyslipidemia, GERD, who presented to the ED with chief complaints of pressure-like, burning-type, 8/10 substernal pain which is radiating to the left arm, worse with lying down, which comes and goes Since one week. Patient came to the ED 3 days ago with similar complaints, and left AMA. Patient went home assuming her symptoms would improve but they have worsened over the past 2 nights. Patient also complained of occipital headache which comes and goes for over a month. Patient wants to get admitted, wants to be seen by manager of distribution. Patient Is admitted for further management. Past medical history: hypertension, diabetes, dyslipidemia, GERD Surgical history: Tummy tuck, breast implants, BTL Family history: Reviewed, noncontributory Personal history: Denies smoking, drinks occasionally, denies drug use Lives with: Family PCP:Dr. Mcdowell Review of Systems Constitutional: No: Fever, Chills, Sweats, Weakness, Malaise, Other Eyes: No: Pain, Vision change, Conjunctivae inflammation, Eyelid inflammation, Other, Redness ENT: No: Ear pain, Ear discharge, Nose pain, Nose discharge, Nose congestion, Mouth pain, Mouth swelling, Throat pain, Throat swelling, Other Respiratory: No: Cough, Dry, Shortness of breath, SOB with excertion, Wheezing, Hemoptysis, Pleuritic Pain, Sputum, Wheezing, Other Cardiovascular: Chest Pain Gastrointestinal: No: Nausea, Vomiting, Abdominal Pain, Diarrhea, Constipation, Melena, Hematochezia, Other Genitourinary: No Dysuria, No Frequency, No Incontinence, No Hematuria, No Retention, No Other Musculoskeletal: arm pain; No: other, neck pain, shoulder pain, back pain, hand pain, leg pain, foot pain Skin: No: Rash, Lesions, Jaundice, Bruising, Other Neurological: Other (headace); No: Weakness, Numbness, Incoordination, Change in speech, Confusion, Seizures Allergies: Coded Allergies: NO KNOWN ALLERGIES (Unverified , 11/15/24) Medications Current Medications Medications Dose Ordered Sig/Makr Route Start Time Stop Time Status Last Admin Dose Admin Ondansetron HCl 4 mg Q4HP PRN IV 11/17/24 20:45 Morphine Sulfate 2 mg Q4HPRN PRN IV 11/17/24 20:45 Nitroglycerin 0.4 mg Q5MINP PRN SL 11/17/24 20:45 Morphine Sulfate 2 mg Q30M PRN IV 11/17/24 20:45 Exam Vital Signs Vital Signs Date Time Temp Pulse Resp B/P (MAP) Pulse Ox O2 Delivery O2 Flow Rate FiO2 11/17/24 21:28 98.4 86 16 109/72 (84) 98 98.4 Exam General: Patient alert and oriented in person, place and time. Patient following commands. HEENT: Normocephalic, atraumatic, moist mucous membranes Respiratory/pulmonary: Clear lungs bilaterally, vesicular murmurs present in almost all lung quevedo, no associated crackles or wheezes. Cardiovascular: Normal heart sounds S1 and S2 with no associated murmurs Abdomen: Abdomen nondistended, there is no pain to palpation in any of the abdominal quadrants, no palpable masses. Extremities: There is no peripheral edema present at the lower extremities. Peripheral Pulses: 3+ Radial (R). 3+ Radial (L). 3+ Dorsalis pedis (R). 3+ Dorsalis pedis(L) Skin: No rashes or pruritus, there is no sacral edema present at this time. Neurological: Intact cranial nerves with no focal neurologic deficits Labs/Xrays Labs Test 11/17/24 19:08 11/17/24 16:55 11/17/24 15:57 Range/Units White Blood Count 9.0 4.4-10.8 10^3/uL Red Blood Count 5.01 4.0-5.20 10^6/uL Hemoglobin 15.6 12.2-16.2 g/dL Hematocrit 45.1 36.0-46.0 % Mean Corpuscular Volume 90.1 80.0-100.0 fL Mean Corpuscular Hemoglobin 31.1 28.0-32.0 pg Mean Corpuscular Hemoglobin Concent 34.5 32.0-36.0 g/dL Red Cell Distribution Width 13.2 11.8-14.3 % Platelet Count 269 140-450 10^3/uL Mean Platelet Volume 9.3 6.9-10.8 fL Neutrophils (%) (Auto) 63.4 37.0-80.0 % Lymphocytes (%) (Auto) 28.5 10.0-50.0 % Monocytes (%) (Auto) 5.6 0.0-12.0 % Eosinophils (%) (Auto) 1.9 0.0-7.0 % Basophils (%) (Auto) 0.6 0.0-2.0 % Neutrophils # (Auto) 5.7 1.6-8.6 10 ^3/uL Lymphocytes # (Auto) 2.6 0.4-5.4 10 ^3/uL Monocytes # (Auto) 0.5 0-1.3 10 ^3/uL Eosinophils # (Auto) 0.2 0-0.8 10 ^3/uL Basophils # (Auto) 0.1 0-0.2 10 ^3/uL Nucleated Red Blood Cells 0.1 % Total Bilirubin 0.6 0.2-1.0 mg/dL Direct Bilirubin 0.1 <0.3 mg/dL Aspartate Amino Transferase (AST) 28 13-40 U/L Alanine Aminotransferase (ALT) 37 7-40 U/L Alkaline Phosphatase 82 46-116 U/L Troponin I High Sensitivity < 3 L </=34 ng/L Total Protein 7.9 5.7-8.2 g/dL Albumin 4.8 3.2-4.8 g/dL Triglycerides Level 191 H < 150 mg/dL Cholesterol Level 175 < 200 mg/dL LDL Cholesterol 109 H < 100 mg/dL HDL Cholesterol 45 40-59 mg/dL D-Dimer, Quantitative 0.43 0.0-0.49 mg/L FEU Sodium Level 141 136-145 mmol/L Potassium Level 3.8 3.5-5.1 mmol/L Chloride Level 106 98-107 mmol/L Carbon Dioxide Level 24 20-31 mmol/L Anion Gap 11 5-15 Blood Urea Nitrogen 17 9-23 mg/dL Creatinine 0.86 0.550-1.02 mg/dL Glomerular Filtration Rate Calc 85 >90 mL/min BUN/Creatinine Ratio 19.8 10.0-20.0 Serum Glucose 110 H 74-106 mg/dL Hemoglobin A1c 6.3 H <5.7 % A1C Calcium Level 9.9 8.7-10.4 mg/dL B-Type Natriuretic Peptide 2.05 0-100 pg/mL Thyroid Stimulating Hormone (TSH) 0.86 0.55-4.78 uIU/mL SEPSIS Sepsis Screen Date sepsis recognized/suspect: Nov 17, 2024 Time Sepsis recognized/suspect: 1533 Recent Procedure: No On Antibiotic Therapy: No Respiratory Rate >20: No Heart Rate >90: No Temp<36 C (96.8 F) or >38.3 C: No SBP <90 or MAP <65 mmHG: No New Acute Mental Status Change: No Is the patient on CPAP, BIPAP,: No Physician Orders Admit (11/17/24 20:37) Allergies (11/17/24 20:37) Code Status (11/17/24 20:37) 2 Gm Sodium Diet (11/18/24 Breakfast) Ondansetron Hcl (Zofran) (11/17/24 20:45) Complete Blood Count (11/18/24 04:00) Comprehensive Metabolic Panel (11/18/24 04:00) Condition: Serious (11/17/24 20:37) Bedrest With Bathroom Privileg (11/17/24 20:37) Morphine Sulfate Injection (11/17/24 20:45) Nitroglycerin Sublingual (Ntrostat Subli (11/17/24 20:45) Morphine Sulfate Injection (11/17/24 20:45) Oxygen By Nasal Cannula (11/17/24 20:37) Stat Ekg For Chest Pain (11/17/24 20:37) Notify Of Changes From Base (11/17/24 20:37) Security Shift Manager For 24 Hours (11/17/24 20:37) Emergency Dysrhythmia Protocol (11/17/24 20:37) Rhythm Strips Once Every Shift (11/17/24 20:37) Electrocardigram (11/17/24 21:58) Echo 2d Mode Cardiac Dop (11/17/24 21:58) Soraya Direct W/Reflex To Comp. (11/17/24 22:01) Vital Signs Date Time Temp Pulse Resp B/P (MAP) Pulse Ox O2 Delivery O2 Flow Rate FiO2 11/17/24 21:28 98.4 86 16 109/72 (84) 98 98.4 11/17/24 18:57 98.7 77 16 140/86 (104) 99 98.7 11/17/24 18:57 77 11/17/24 18:56 140/86 11/17/24 18:18 65 11/17/24 16:25 72 Laboratory Tests Test 11/17/24 19:08 White Blood Count 9.0 10^3/uL (4.4-10.8) Medications Medications Dose Ordered Sig/Mark Route Start Time Stop Time Status Last Admin Dose Admin Aspirin 325 mg ONCE ONCE PO 11/17/24 18:45 11/17/24 18:46 DC 11/17/24 18:55 325 MG Nitroglycerin 1 pkg ONCE ONCE TD 11/17/24 18:45 11/17/24 18:46 DC 11/17/24 18:56 1 PKG Assessment/Plan Assessment/Plan Assessment and plan # chest pain rule out ACS, pruritic pattern of chest pain, associated dyspepsia ? Pericarditis ? Gastritis ?panic attack # ?Radiculopathy with neck pain - EKG WNL, - ordered CRP, - normal tropes - troponins WNL - Echo, ordered - aspirin 325 mg was given in the ER - Continue Protonix - Cervical x ray shows No evidence for fracture or subluxation. - consider cardiology consult # hypertension - continue home meds # diabetes mellitus Hba1c: 6.1 - takes ozempic -monitor labs mild sliding scale # hyperlipidemia - continue home meds PPI prophylaxis: Protonix DVT prophylaxis: Not indicated Goals of care addressed with the patient for more than 31 minutes: Full code status Case discussed with Dr. Roche, patient and nurse Plan discussed with: Patient My Orders Orders - BAILEE DICKSON RESIDENT Procedure Category Date Status Time Admit ADMIT 11/17/24 Transmitted 20:37 Allergies JEZ 11/17/24 In Process 20:37 Code Status CODE 11/17/24 Transmitted 20:37 2 Gm Sodium Diet DIET 11/18/24 Transmitted Breakfast Ondansetron Hcl PHA 11/17/24 In Process (Zofran) 20:45 Complete Blood Count LAB 11/18/24 Verified 04:00 Comprehensive LAB 11/18/24 Verified Metabolic Panel 04:00 Condition: Serious JEZ 11/17/24 In Process 20:37 Bedrest With Bathroom JEZ 11/17/24 In Process Privileg 20:37 Morphine Sulfate PHA 11/17/24 In Process Injection 20:45 Nitroglycerin PHA 11/17/24 In Process Sublingual (Ntrostat 20:45 Morphine Sulfate PHA 11/17/24 In Process Injection 20:45 Oxygen By Nasal RT 11/17/24 Transmitted Cannula 20:37 Stat Ekg For Chest [facility] 11/17/24 In Process Pain 20:37 Notify Md Of Changes [facility] 11/17/24 In Process From Base 20:37 Security Shift Manager For [facility] 11/17/24 In Process 24 Hours 20:37 Emergency Dysrhythmia [facility] 11/17/24 In Process Protocol 20:37 Rhythm Strips Once [facility] 11/17/24 In Process Every Shift 20:37 Electrocardigram EKG 11/17/24 Logged 21:58 Echo 2d Mode Cardiac US 11/17/24 Logged DOP 21:58 Soraya Direct W/Reflex LAB 11/17/24 In Process To Comp. 22:01 Date of Service: Nov 17, 2024 Billing Provider: KIP ROCHE MD Common Visit Codes: 06264-[id number] INP/OBS CARE (HIGH) Secondary Visit Codes: 38964-[id number] CARE PLAN 30 MINUTES BAILEE DICKSON RESIDENT Nov 17, 2024 23:56 JUDE DEXTER RESIDENT Nov 18, 2024 04:26
[2024-11-18] VITALS (7 sets, daily range): BP systolic 114–115; BP diastolic 65–76; PULSE 59–77; RESP 16–19; TEMP 97.7–98; O2SAT 96–99
[2024-11-18] MEDS ORDERED: PANTOPRAZOLE 40 MG/10 ML VIAL INJ IV ONE
--- NOTE | 2024-11-18 00:26 | DVH ---
INDICATION: rule out radiculopaty TECHNIQUE: 3 views of the cervical spine were obtained. COMPARISON: None FINDINGS: The cervical spine is visualized from C1-C7. There is loss of the normal cervical lordosis which can be positional. No fractures or subluxations are identified. Alignment appears unremarkable. Prevertebral soft tissues are within normal limits. IMPRESSION: 1. No evidence for fracture or subluxation.
[2024-11-18] MEDS ORDERED: SEMA4INJ SC (04:45)
[2024-11-18] MEDS ORDERED: LISI2.5T47 PO (04:45)
[2024-11-18] MEDS ORDERED: ATOR20TA50 PO (04:45)
[2024-11-18 06:01] LABS: Hematocrit 41.0 % (36.0-46.0); Hemoglobin 14.4 g/dL (12.2-16.2); Mean Corpuscular Hemoglobin 31.4 pg (28.0-32.0); Mean Corpuscular Volume 89.3 fL (80.0-100.0); Nucleated Red Blood Cells % 0.1 %
[2024-11-18 06:18] LABS: Alanine Aminotransferase 31 U/L (7-40); Albumin 4.5 g/dL (3.2-4.8); Alkaline Phosphatase 76 U/L (46-116); Anion Gap 11 (5-15); BUN/Creatinine Ratio 17.4 (10.0-20.0); Blood Urea Nitrogen 12 mg/dL (9-23); Calcium 9.3 mg/dL (8.7-10.4); Carbon Dioxide 23 mmol/L (20-31); Chloride 105 mmol/L (98-107); Potassium 3.6 mmol/L (3.5-5.1); Sodium 139 mmol/L (136-145); Total Protein 7.3 g/dL (5.7-8.2)
[2024-11-18 06:19] LABS: Bilirubin, Total 0.7 mg/dL (0.2-1.0)
[2024-11-18] MEDS ORDERED: DEXTROSE (50%) 50ML SYRG IV PRN (06:30)
[2024-11-18 06:47] LABS: Glucose 105 mg/dL (74-106)
[2024-11-18] MEDS: InsuLIN REG 1unit/0.01ml Soln (100units/ml) SC SCH (06:56)
[2024-11-18] MEDS: ACCU-CHEK COMFORT CURVE STRIP VI SCH (06:56)
[2024-11-18] MEDS: LISINOPRIL 5 MG TAB ONE (10:15)
[2024-11-18] MEDS: PANTOPRAZOLE 40 MG/10 ML VIAL INJ IV ONE (10:16)
[2024-11-18] MEDS: LISINOPRIL 5 MG TAB PO SCH (10:29)
[2024-11-18] MEDS: PANTOPRAZOLE 40 MG/10 ML VIAL INJ IV SCH (10:30)
--- NOTE | 2024-11-18 13:16 | DVHSR ---
APPROVED REPORT EXAM: LIMITED Two-dimensional and M-mode echocardiogram with Doppler and color Doppler. Blood Pressure: 143/88 mmHg INDICATION Rule out structural heart disease RISK FACTORS Height: 5'0", Weight: 172 DIMENSIONS LVDd3.4 (3.8-5.7cm)LA (2D) (1.9-4.0cm)Aortic Root3.5 (2.0-3.7cm) LVDs2.4 (2.5-4.0cm)LA (MM) (1.9-4.0cm)Aortic Cusp Exc1.7 (1.5-2.0cm) EF (%) 60.0 (55-70%)Rt. Atrium (1.9-4.0cm)Asc. Aorta cm IVSd1.2 (0.7-1.1cm)RV (D) (1.8-2.4cm) PWd1.1 (0.7-1.1cm) Mitral Valve MitralMitral Stenosis E/A ratio0.02D MVAcm2 Aortic Valve Aortic ValveAortic Stenosis LVOT Diameter1.8 (1.8-2.4cm)Doppler AVAcm2 Pulmonic Valve V20.80m/s Other Information Quality : Technically LimitedRhythm : Technically limited study due to body habitus, unable to obtain apical views due to implants. Conclusion lvef 55-60% mild to moderate LVH normal rv function but not well seen normal atria no severe valve abnormality noted
[2024-11-18] MEDS ORDERED: IBUP-1454 PO (17:16)
--- NOTE | 2024-11-18 17:16 | DVHDSRES ---
Discharge Summary Date of Admission Resident Creating Document: SAHRA PENA Nov 18, 2024 at 06:28 Date of Discharge: Nov 18, 2024 Admitting Diagnosis ACS Labs/Diagnostic Data: Laboratory Results Test 11/18/24 10:32 11/18/24 05:40 11/17/24 16:55 11/17/24 15:57 POC Glucose 93 mg/dl (70-106) White Blood Count 9.4 10^3/uL (4.4-10.8) Red Blood Count 4.60 10^6/uL (4.0-5.20) Hemoglobin 14.4 g/dL (12.2-16.2) Hematocrit 41.0 % (36.0-46.0) Mean Corpuscular Volume 89.3 fL (80.0-100.0) Mean Corpuscular Hemoglobin 31.4 pg (28.0-32.0) Mean Corpuscular Hemoglobin Concent 35.1 g/dL (32.0-36.0) Red Cell Distribution Width 13.1 % (11.8-14.3) Platelet Count 212 10^3/uL (140-450) Mean Platelet Volume 9.5 fL (6.9-10.8) Neutrophils (%) (Auto) 63.0 % (37.0-80.0) Lymphocytes (%) (Auto) 26.9 % (10.0-50.0) Monocytes (%) (Auto) 7.1 % (0.0-12.0) Eosinophils (%) (Auto) 2.3 % (0.0-7.0) Basophils (%) (Auto) 0.7 % (0.0-2.0) Neutrophils # (Auto) 5.9 10 ^3/uL (1.6-8.6) Lymphocytes # (Auto) 2.5 10 ^3/uL (0.4-5.4) Monocytes # (Auto) 0.7 10 ^3/uL (0-1.3) Eosinophils # (Auto) 0.2 10 ^3/uL (0-0.8) Basophils # (Auto) 0.1 10 ^3/uL (0-0.2) Nucleated Red Blood Cells 0.1 % Erythrocyte Sedimentation Rate 9 mm/hr (0-20) Sodium Level 139 mmol/L (136-145) Potassium Level 3.6 mmol/L (3.5-5.1) Chloride Level 105 mmol/L (98-107) Carbon Dioxide Level 23 mmol/L (20-31) Anion Gap 11 (5-15) Blood Urea Nitrogen 12 mg/dL (9-23) Creatinine 0.69 mg/dL (0.550-1.02) Glomerular Filtration Rate Calc 109 mL/min (>90) BUN/Creatinine Ratio 17.4 (10.0-20.0) Serum Glucose 105 mg/dL (74-106) Calcium Level 9.3 mg/dL (8.7-10.4) Total Bilirubin 0.7 mg/dL (0.2-1.0) Aspartate Amino Transferase (AST) 25 U/L (13-40) Alanine Aminotransferase (ALT) 31 U/L (7-40) Alkaline Phosphatase 76 U/L (46-116) C-Reactive Protein High Sensitivity 0.37 mg/dL (<1.0) Total Protein 7.3 g/dL (5.7-8.2) Albumin 4.5 g/dL (3.2-4.8) Direct Bilirubin 0.1 mg/dL (<0.3) Troponin I High Sensitivity < 3 ng/L (</=34) Triglycerides Level 191 mg/dL (< 150) Cholesterol Level 175 mg/dL (< 200) LDL Cholesterol 109 mg/dL (< 100) HDL Cholesterol 45 mg/dL (40-59) D-Dimer, Quantitative 0.43 mg/L FEU (0.0-0.49) Hemoglobin A1c 6.3 % A1C (<5.7) B-Type Natriuretic Peptide 2.05 pg/mL (0-100) Thyroid Stimulating Hormone (TSH) 0.86 uIU/mL (0.55-4.78) Other Laboratory Tests 11/18/24 05:40 Brief Hx & Hospital Course: Chris Slade 44-year-old female with past medical history of hypertension, diabetes, dyslipidemia, GERD, who presented to the ED with chief complaints of pressure-like, burning-type, 8/10 substernal pain which is radiating to the left arm, worse with lying down, which comes and goes Since one week. Patient came to the ED 3 days ago with similar complaints, and left AMA. Patient went home assuming her symptoms would improve but they have worsened over the past 2 nights. Patient also complained of occipital headache which comes and goes for over a month. 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 Patient Is admitted for further management. Past medical history: hypertension, diabetes, dyslipidemia, GERD Surgical history: Tummy tuck, breast implants, BTL Family history: Reviewed, noncontributory Personal history: Denies smoking, drinks occasionally, denies drug use Lives with: Family PCP:Dr. Mcdowell The patient's chest pain was managed with morphine, nitroglycerin and loading dose of aspirin. Acute coronary syndrome was ruled out by EKG, troponins WNL and echocardiography normal findings. Cervical x-ray did not reveal any fracture. The patient's symptoms improved with supportive management. The treatment and discharge plan was explained to the patient and verbalized understanding. She was hemodynamically stable, was tolerating diet during the day of discharge. The patient was advised to follow up with DC clinic and PCP within 1-2 weeks. General: Patient alert and oriented in person, place and time. Patient following commands. HEENT: Normocephalic, atraumatic, moist mucous membranes Respiratory/pulmonary: Clear lungs bilaterally, vesicular murmurs present in almost all lung quevedo, no associated crackles or wheezes. Cardiovascular: Normal heart sounds S1 and S2 with no associated murmurs Abdomen: Abdomen nondistended, there is no pain to palpation in any of the abdominal quadrants, no palpable masses. Extremities: There is no peripheral edema present at the lower extremities. Peripheral Pulses: 3+ Radial (R). 3+ Radial (L). 3+ Dorsalis pedis (R). 3+ Dorsalis pedis(L) Skin: No rashes or pruritus, there is no sacral edema present at this time. Neurological: Intact cranial nerves with no focal neurologic deficits Case discussed with Dr. Whelan, patient and nurse Operations or Procedures Echo: lvef 55-60% mild to moderate LVH normal rv function but not well seen normal atria no severe valve abnormality noted cervical spine x-ray:1. No evidence for fracture or subluxation. CXR: Normal Condition at Discharge: Stable (RN) Final Diagnosis/Problems List Costochondritis Costochondritis Hypertension Diabetes mellitus Hba1c: 6.1 Hyperlipidemia Discharge Disposition: Home Discharge Instruct/Medications Diet: Regular Activity: No Restrictions, As Tolerated Follow Up/Referral: PCP Discharge clinic Medications: Ibuprofen Scheduled Atorvastatin Calcium (Atorvastatin Calcium), 1 TAB PO DAILY, (Reported) Lisinopril (Lisinopril), 1 TAB PO DAILY, (Reported) Semaglutide (Ozempic), 1 MG SC QWEEKLY, (Reported) Scheduled PRN Ibuprofen (Ibuprofen), 1 TAB PO TID PRN Discharge Statement: "Patient was advised to return to the ER or call 911 if any headaches, dizziness, shortness of breath, chest pain, abdominal pain, bleeding, fevers, or worsening of medical condition. Patient was counseled about treatment plan, medications, possible side effects, patientverbalized understanding. All questions were answered to the best of my ability. This discharge took greater then 30 minutes in planning, reviewing documentation, counseling the patient, and discussing with other team members." ASSESSMENT ASSESSMENT Assessment Costochondritis SAHRA PENA RESIDENT Nov 18, 2024 17:16
[2024-11-18] MEDS ORDERED: ATORVASTATIN 20 MG TAB PO SCH (22:00)
[2024-11-19 16:07] LABS: Anti-Nuclear Antibody Direct Positive (Negative)
[2024-11-19 17:07] LABS: Anti-dsDNA Antibody <1 IU/mL (0-9); Sjogren's Anti-SS-A Antibody 0.2 AI (0.0-0.9); Sjogren's Anti-SS-B Antibody <0.2 AI (0.0-0.9)
== END 2024-11-18 19:00 | disposition home or self-care (01) | DRG 203 ==
LOC: ER 15:30 → OVERFLOW 20:37 → UNDOADMIN 20:37 → OVERFLOW 20:51 → TELE-WESTW 11-18 04:16 → OVERFLOW 11-18 06:28
PROVIDERS: ADMIT Student in an Organized Health Care Education/Training Program; ATTEND Student in an Organized Health Care Education/Training Program
DX: M94.0 Chondrocostal junction syndrome [Tietze] (principal); E11.9 Type 2 diabetes mellitus without complications; E78.5 Hyperlipidemia, unspecified; I10 Essential (primary) hypertension; K21.9 Gastro-esophageal reflux disease without esophagitis; M54.12 Radiculopathy, cervical region
CPT/HCPCS: 36415; 71045; 72040; 80048; 80053; 80061; 80076; 82962; 83036; 83880; 84443; 84484; 85025; 85379; 85652; 86038; 86141; 93005; 93306; G0378; J2470